=== PATIENT | female | born 1990 | race Caucasian/White ===

== ENCOUNTER 2017-01-26 08:34 | Emergency (ER) | payer OTHER ==
[2017-01-26 09:09] LABS: BILIRUBIN,URINE NEGATIVE (NEGATIVE); HCG UR QUAL POSITIVE; UA w/ MICROSCOPIC CHARGE YES
--- NOTE | 2017-01-26 09:34 | ED Physician Documentation ---
History of Present Illness - Stated complaint Stated Complaint: FEMALE /6WK - Chief complaint Chief Complaint: Abd Pain - Additonal information Additional information: hx from pt G3P) IVF 12/30 transferred to embryos at [facility] 01/08 quant was 279 01/15 quant was approx 4600 no sono yet on progesterone and estrogen vag bleeding today - has not soaked a pad no abd pain not sure of her blood type Review of Systems Constitutional: denies: Fever Cardiac: denies: Chest pain / pressure Respiratory: denies: Dyspnea GI: denies: Abdominal Pain : reports: Vaginal bleeding, Now EGA Endocrine: denies: Easy bruising / bleeding Immunocompromised: denies: Immunocompromised PD PAST MEDICAL HISTORY - Past Medical History Past Medical History: No - Past Surgical History Past 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 History: 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 - Present Medications Home Medications: Ambulatory Orders Medication Instructions Recorded Confirmed Estradiol [Estrace] 2 mg PO TID 01/26/17 01/26/17 Levothyroxine [Synthroid] 75 mcg PO DAILY 01/26/17 01/26/17 Vitamin [Trinatal Rx 1] 1 tab PO DAILY 01/26/17 01/26/17 Progesterone,Micronized 100 mg IA 01/26/17 [Progesterone] - Allergies Allergies/Adverse Reactions: Allergies Allergy/AdvReac Type Severity Reaction Status Date / Time Sulfa (Sulfonamide Allergy Rash Verified 01/26/17 08:46 Antibiotics) - Social History Does the pt smoke?: No Smoking Status: Never smoker Does the pt drink ETOH?: No Does the pt have substance abuse?: No PD ED PE NORMAL - Vitals Vital signs reviewed: Yes - Cardiac Cardiac: RRR - Respiratory Respiratory: No respiratory distress - Abdomen Abdomen: Soft, Non tender - Derm Derm: Normal color - Neuro Neuro: Alert and oriented X 3 Results - Vitals Vitals: Vital Signs - 24 hr 01/26/17 08:44 Temperature 36.9 C Heart Rate 84 Respiratory 18 Rate Blood Pressure 118/75 O2 Saturation 99 - Labs Labs: Laboratory Tests 01/26/17 01/26/17 01/26/17 08:45 09:45 09:45 HCG, Quant [id number] Urine Color YELLOW Urine Clarity CLEAR Urine pH 6.0 Ur Specific [place] <=1.005 Urine Protein NEGATIVE Urine Glucose (UA) NEGATIVE Urine Ketones NEGATIVE Urine Occult Blood LARGE H Urine Nitrite NEGATIVE Urine Bilirubin NEGATIVE Urine Urobilinogen 0.2 (NORMAL) Ur Leukocyte Esterase NEGATIVE Urine RBC 0-5 Urine WBC 0-3 Ur Squamous Epith Cells FEW Squamous Amorphous Sediment Rare Urine Bacteria None Seen Ur Microscopic Review INDICATED Urine Culture Comments NOT INDICATED Urine HCG, Qual POSITIVE Blood Type A POSITIVE - Rads (name of study) OB sono Radiology: See rad report (two viable IUPs present - fetus A 6w3d FHR 127 small perigest hemorrhage, fetus B 6w 4 d FHR 130, no FF, nl ovaries) PD MEDICAL DECISION MAKING - ED course ED course: A + inc quant live IUP small perigest hem d/w [facility] IVF - rec keep sono appt Thu, continue meds as rx, follow up [facility] next week Departure - Departure Disposition: 01 Home, Self Care Clinical Impression: Threatened Twin Qualifiers: Multiple gestation type: unspecified Trimester: first trimester Qualified Code( s): O30.001 - Twin , unspecified number of placenta and unspecified number of amniotic sacs, first trimester Condition: Good Instructions: ED Miscarriage Poss Follow-Up: Danny Gillespie MD [Primary Care Provider] - Comments: The ultrasound saw two live babies in the uterus. There was a small amount of hemorrhage near the placenta for Baby A. But both babies are implanted and alive. Any time there is vaginal bleeding there is a risk of miscarriage but for the moment the ultrasound is reassuring I spoke to the staff at your IVF clinic - they recommend you continue your medications as prescribed, keep your ultrasound appointment for Thursday, follow up at [facility] next week You do not need to be on bed rest but you should take it ease - also recommend pelvic rest meaning no tampons and no sex until cleared by your OB
[2017-01-26 10:07] LABS: UR CULTURE IF IND NOT INDICATED; WBC,URINE 0-3 /HPF (0-5)
[2017-01-26 12:18] VITALS: BP 97/53
--- NOTE | 2017-01-26 13:41 | Ultrasound Report ---
FIRST TRIMESTER OB ULTRASOUND: 01/26/2017 CLINICAL INDICATION: Status post IVF with 2-embryo transfer, vaginal bleeding. TECHNIQUE: Real-time scanning was performed with used equipment sales representative static images obtained. FINDINGS: Uterus is anteverted, and appears unremarkable. Two gestational sacs are seen within the endometrial canal. Fetus A, on maternal right, measures 6 weeks 3 days by crown-rump length. heart rate is 127 BP M. A small perigestational hemorrhage is noted around the sac of fetus A. Fetus B, on maternal left, measures 6 weeks 4 days by crown-rump length. heart rate is 130 BPM . No perigestational hemorrhage is seen. The ovaries are unremarkable. No free fluid is present. IMPRESSION: TWO VIABLE INTRAUTERINE GESTATIONS, MEASURING 6 WEEKS 3 DAYS AND 6 WEEKS 4 DAYS BY CROWN -RUMP LENGTH. SMALL PERIGESTATIONAL HEMORRHAGE ADJACENT TO THE SAC FOR FETUS A. JOB #: [id number] EXT JOB #:
== END 2017-01-26 12:22 | disposition home or self-care (01) ==
LOC: ED 08:34
DX: O20.0 Threatened abortion (principal); Z3A.01 Less than 8 weeks gestation of pregnancy; O30.001 Twin pregnancy, unspecified number of placenta and unspecified number of amniotic sacs, first trimester
CPT/HCPCS: 36415; 76801; 76817; 81001; 81003; 81025; 84702; 86900; 86901; 87086; 99283; 99284

== ENCOUNTER 2017-06-13 00:03 | Outpatient (CLI) | payer OTHER ==
--- NOTE | 2017-06-13 01:40 | PROVIDER PROGRESS NOTE ---
Subjective - Prog Note Date Prog Note Date: 06/13/17 Prog Note Time: 01:35 - Subjective Subjective: Mrs. Dunia Rossi is a 26-year-old 3 para 0020 known diamniotic dichorionic twin at 26 weeks and 1 day who reports vaginal spotting. At 1100 hrs., she noted flecks of red non-foul discharge on her underclothing. The discharge was accompanied by irregular contractions w material described as a small faith or 2 of rice size clots. Throughout the day she had which she interpreted as Aleksandr Zamarripa. On Thursday she was evaluated [facility] and ultrasound was done that showed the cervical length to be 4 cm and BV cervicitis. She was started on a course of MetroGel with her last dose being at 2000 hrs. Patient is currently being followed at [facility] clinic as well. was achieved with assisted reproductive technology. Objective - Vital Signs/Intake & Output Vital Signs: Vital Signs x48h Temp Pulse Resp BP Pulse Ox 06/13/17 00:30 99.1 F 82 18 115/67 98 Physical Exam - Physical Exam General: positive: No acute distress, Well developed/nourished, Alert HEENT: positive: Moist mucous membranes, Dentition normal Neck: positive: Supple w/out meningeal sx Cardiac: positive: Regular Rate, Regular Rhythm, Other (Other than faint murmur of there are no other cardiac findings) Resipratory: positive: Clear to ausultation yolanda Abdomen: positive: Other (No organomegaly or tenderness; no CVA tenderness) Female : positive: Normal external, Enlarged uterus (30 cm approximately fundal height; no significant palpable contractions.Nontender uterus), Other ( External monitor strip finds reactive patterns twin a and B with baseline in each about 135 & 145 and no significant D cells. There are rare suggestions of contractions but on palpation the activities of very mild), Woven Label Designer present Extremities: positive: Normal ROM, No pedal edema Skin: positive: Warm and dry Neurologic: positive: Alert and Oriented X 3, Normal motor/no weakness, Normal Sensation PSYCH: positive: Anxious (Slight anxiety, appropriate) Assessment/Plan - Assessment/Plan Assessment: Mrs. Dunia Rossi is a known twin gestation at 26 weeks who reports bloody discharge and has known BV infection. Physical examination is not suspicious for labor: The cervix is not dilated, No significant palpable contractions and effaced and fern test is negative. fibronectin positive probably due to bacterial vaginosis.. EFM tracing is reactive for both twin a and B. Blood tinged discharge is probably secondary to cervicitis. After a single dose of nifedipine 20 mg the uterine irritability decreased and the patient went to sleep. Plan: Plans * Patient is discharged home with instructions to avoid strenuous activity and maintain pelvic rest * She will continue her oral amoxicillin and vaginal MetroGel as previously ordered * Continue following at [facility] and [facility] as previously scheduled * Warning sign and callback instructions were reviewed prior to discharged * Please send a copy of this to Dr. Osborne at [facility]
[2017-06-13 01:56] LABS: BILIRUBIN,URINE NEGATIVE (NEGATIVE); CLARITY,URINE CLEAR (CLEAR); GLUCOSE, URINE (UA) NEGATIVE (NEGATIVE); KETONES,URINE (UA) NEGATIVE (NEGATIVE); LEUKOCYTE ESTERASE, URINE NEGATIVE (NEGATIVE); NITRITE,URINE NEGATIVE (NEGATIVE); OCCULT BLOOD,URINE TRACE-LYSE (NEGATIVE); PH,URINE 6.5 PH (5.0-7.5); PROTEIN,URINE NEGATIVE (NEGATIVE); UROBILINOGEN,URINE 0.2 (NORMAL) E.U./dL (NORMAL)
[2017-06-13] MEDS ORDERED: NIFEdipine 10 MG CAPSULE PO SCH (02:19)
[2017-06-13] MEDS ORDERED: NIFEdipine 10 MG CAPSULE PO ONE (02:25)
[2017-06-13 02:58] VITALS: BP 114/59
== END 2017-06-13 05:10 | disposition home or self-care (01) ==
LOC: WFO 00:03 → FBP 00:06 → WFO 05:10
PROVIDERS: ATTEND Obstetrics & Gynecology
DX: O30.042 Twin pregnancy, dichorionic/diamniotic, second trimester (principal); O23.592 Infection of other part of genital tract in pregnancy, second trimester; N76.0 Acute vaginitis; B96.89 Other specified bacterial agents as the cause of diseases classified elsewhere; Z3A.36 36 weeks gestation of pregnancy
CPT/HCPCS: 81001; 81003; 82731; 99214

== ENCOUNTER 2017-06-13 21:14 | Observation (INO) | payer OTHER ==
[2017-06-13] MEDS ORDERED: NIFEdipine ER 30 MG TABLET PO ONE (22:37)
[2017-06-14 08:04] VITALS: BP 114/63
--- NOTE | 2017-06-14 14:00 | HISTORY & PHYSICAL EXAMINATION ---
DATE OF SERVICE: Physician: Sinan Hawley MD DATE OF ADMISSION: 06/14/2017 (extended OB Observation) DIAGNOSES 1. Twin gestation, diamniotic dichorionic. 2. A 26-week gestation. 3. contractions, not in labor. 4. Decel Twin A HISTORY OF PRESENT ILLNESS: The patient returned this evening complaining of contractions occurring every 6 minutes of mild intensity. She did not suspect leakage of fluid or discharge. She is compliant with her MetroGel for bacterial vaginosis. For complete recap of her situation, reference yesterday's H&P note. PHYSICAL EXAMINATION GENERAL: Somewhat anxious, alert, oriented, cooperative. VITAL SIGNS: Afebrile, normotensive. ABDOMEN: No organomegaly, no tenderness. Uterus appropriate size, normal resting tone. No point tenderness. Minimal intensity contractions sensed. EXTERNAL MONITORING: Twin A: 135, good variability. Twin B: The same. Just after 2 hours of observation, twin A had a deceleration for 1 minute down to 120 to 100. This returned but prompted continued observation. The remainder of the strip remained unremarkable with no significant fluctuations in heart tones. EXTERNAL GENITALIA: No lesions. VAGINA: MetroGel present. No longer bloody discharge. Cervix long, thick, closed. ASSESSMENT: This is a 26-week twin gestation who had a brief period of deceleration in Twin A. Overall, the pattern is reassuring. PLAN: Patient was discharged home. She is to continue her MetroGel as previously prescribed. She will see her OB chair car attendant at the [facility] on Thursday and her MFM on Thursday. TD: 06/14/2017 13:58 MTDD
== END 2017-06-14 10:55 | disposition home or self-care (01) ==
LOC: WFO 21:14 → FBP 21:15 → WFO 23:53
PROVIDERS: ADMIT Obstetrics & Gynecology; ATTEND Obstetrics & Gynecology
DX: O30.042 Twin pregnancy, dichorionic/diamniotic, second trimester (principal); O23.592 Infection of other part of genital tract in pregnancy, second trimester; N76.0 Acute vaginitis; O60.03 Preterm labor without delivery, third trimester; B96.89 Other specified bacterial agents as the cause of diseases classified elsewhere; Z3A.26 26 weeks gestation of pregnancy
CPT/HCPCS: 81003; 82731; 99214; A9270; G0378; 81001

== ENCOUNTER 2017-06-15 01:32 | Outpatient (CLI) | payer OTHER | END 2017-06-15 01:33 | disposition short-term general hospital (02) | LOC: EMS 01:32 | PROVIDERS: ATTEND Surgery | DX: O60.02 Preterm labor without delivery, second trimester (principal); Z3A.26 26 weeks gestation of pregnancy | CPT/HCPCS: A0425; A0426 ==